=== PATIENT | female | born 1965 | race Caucasian/White ===

== ENCOUNTER 2019-05-25 20:19 | Emergency (ER) | payer OTHER ==
[~2019-05-25] VITALS: Ht 165.1 cm; Wt 103.4 kg
[~2019-05-25 20:19] MED LIST: AMBEREN; AMBIEN 10 MG TA10 MG PO; ATIVAN1 MG PO; AUGMENTIN 875875 MG PO; CELEXA40 MG PO; CHLORPROMAZINE25 M1 PO; CHLORPROMAZINE50 M2 PO; CIPROFLOXACIN500 M1 PO; DESYREL100 MG PO; DIPHENHIST50 MG PO; FLAGYL500 MG PO; GEODON60 MG PO; HALOPERIDOL 2 MG2 MG PO; HYDROCHLOROTH12.5 MG PO; HYDROCHLOROTHIA25 M1 PO; IBUPROFEN 600600 M1 PO; IRON; LACTULOSE PO; LASIX; MACROBID 100 M100 M1 PO; NEURONTIN 300300 M1 PO; NEURONTIN600 MG; NORCO 5-325 TA1 EACH PO; PROPRANOLOL; PROPRANOLOL 4040 M1 PO; SEROQUEL 100 M100 MG PO; SEROQUEL400 MG; TEGRETOL XR100 MG; TEGRETOL XR200 MG PO; TRAMADOL 50 MG50 MG; TRAMADOL 50 MG50 MG PO; TRAZADONE PO; TRAZODONE 150150 M1 PO; TRIAMTERENE-HC1 EAC1 PO; ULTRAM 50MG TAB50 MG PO; ZANTAC 150MG T150 MG PO; ZOFRAN 4 MG ORAL4 M1 DIS; ZOFRAN ODT4 MG PO
[2019-05-25 20:52] LABS: BASOPHILS 0.9 % (0.0-2.0); EOSINOPHILS 2.3 % (0.0-3.0); HEMATOCRIT 40.2 % (37.0-47.0); HEMOGLOBIN 13.9 gm/dL (12.0-15.0); LYMPHOCYTES 20.6 % (24.0-44.0); MCH 31.3 pg (26.0-34.0); MCHC 34.5 g/dL (28.0-37.0); MCV 90.8 fL (80.0-100.0); MONOCYTES 11.9 % (1.0-8.0); PLATELET COUNT 90 thou/uL (150-400); POLYS 64.3 % (36.0-66.0); RBC 4.43 mil/uL (4.20-5.00); RDW 13.9 % (10.5-14.5); WBC 6.3 thou/uL (4.0-11.0)
[2019-05-25 20:59] LABS: CALCIUM 8.7 mg/dL (8.5-10.1); CREATININE 0.8 mg/dL (0.6-1.0); POTASSIUM 3.6 mmol/L (3.5-5.1)
[2019-05-25 21:14] LABS: URINE BILIRUBIN NEGATIVE (Negative); URINE BLOOD NEGATIVE (Negative); URINE CLARITY CLEAR; URINE COLOR YELLOW; URINE GLUCOSE-RANDOM* NEGATIVE (Negative); URINE KETONES NEGATIVE (Negative); URINE LEUKOCYTES-REFLEX NEGATIVE (Negative); URINE NITRITE-REFLEX NEGATIVE (Negative); URINE PROTEIN (DIPSTICK) NEGATIVE (Negative); URINE SPECIFIC GRAVITY <= 1.005 (1.005-1.035); URINE UROBILINOGEN 0.2 E.U./dl (0.2-1.0)
[2019-05-26 06:59] VITALS: BP 114/58
[2019-05-26] MEDS ORDERED: NORFLEX100 MG PO (07:04)
== END 2019-05-26 07:06 | disposition home or self-care (01) ==
LOC: ER 20:19
PROVIDERS: Emergency Medicine
DX: M54.5 Low back pain (principal); F41.9 Anxiety disorder, unspecified; F31.9 Bipolar disorder, unspecified; K74.60 Unspecified cirrhosis of liver; Z98.890 Other specified postprocedural states; Z90.89 Acquired absence of other organs; Z88.5 Allergy status to narcotic agent; Z88.6 Allergy status to analgesic agent

== ENCOUNTER 2019-06-05 07:08 | Emergency (ER) | payer OTHER ==
[~2019-06-05] VITALS: Ht 167.6 cm; Wt 61.2 kg
[~2019-06-05 07:08] MED LIST changes: +NORFLEX100 MG PO
[2019-06-05 08:35] VITALS: BP 158/92
== END 2019-06-05 08:35 | disposition home or self-care (01) ==
LOC: ER 07:08
DX: S01.111A Laceration without foreign body of right eyelid and periocular area, initial encounter (principal); S20.01XA Contusion of right breast, initial encounter; S40.021A Contusion of right upper arm, initial encounter; S70.11XA Contusion of right thigh, initial encounter; K74.60 Unspecified cirrhosis of liver; F31.9 Bipolar disorder, unspecified; F41.9 Anxiety disorder, unspecified; Z90.89 Acquired absence of other organs; Z98.890 Other specified postprocedural states; Z88.5 Allergy status to narcotic agent; V19.88XA Pedal cyclist (driver) (passenger) injured in other specified transport accidents, initial encounter; Y92.89 Other specified places as the place of occurrence of the external cause; Y93.89 Activity, other specified; Y99.8 Other external cause status

== ENCOUNTER 2021-10-13 01:31 | Inpatient (IN) | payer MEDICARE, OTHER ==
[~2021-10-13] VITALS: Ht 167.6 cm; Wt 74.8 kg
--- NOTE | ~2021-10-13 | EMS ---
[facility] [address] [place] [address] EMS Patient Care Report Name: JOSEFINA CASANOVA Room #: PRE M.R.#: [id number] Admission: Attend Phys: Discharge: Date of : 65 Report #: [id number] THIS REPORT FOR: //name// Report Transmitted: 10/13/2021 01:31 EMS Care Summary [place], [place]/[facility] Incident [id number] @ 10/13/2021 01:06 Incident Location [address] [place] [id number] Patient JOSEFINA CASANOVA Female, 55 Years 1965 Patient Address homeless Patient History Pneumonia, Patient Allergies No known allergies, Patient Medications Methylphenidate, Chief Complaint SOA/ cough Disposition Transported No Lights/[place] Dispatch Reason Sick Person Transported To [facility] Narrative Arrived to find pt sitting on curb in front of closed business. Pt states she is homeless and thinks she may have pneumonia because she has been out in the cold and has had it before. Pt states she has had a cough and shortness of breath for 2 days. Cough is non-productive. Pt states she had the Pfeizer Covid vaccine. Pt is able to speak in full sentences. Pt is AOx3 GCS 15. Pt steps in [facility] [address] [place] [address] EMS Patient Care Report Name: JOSEFINA CASANOVA Room #: PRE Stacie#: [id number] Admission: Attend Phys: Discharge: Date of : 65 Report #: [id number] ambulance, sits on cot and is secured with cot straps. Pt placed in 3M mask. Pt transported without incident. Care to RN, rm 12. Initial Vitals @01:18P: 97,R: 16,BP: 136/84,Pain: 0/10,GCS: 15,Temp: 99.1F,Glucose: 134,CO: 9,SpO2: 95,Revised Trauma: 12, @01:20P: 97,BP: 125/81,CO: 12,SpO2: 94, Assessments @01:14MENTAL:Time Oriented,Person Oriented,Place Oriented,Event Oriented,SKIN:HEENT:Head/Face: No Abnormalities,Eyes: No Abnormalities,Neck/Airway: No Abnormalities,LUNG SOUNDS:General: No Abnormalities,Left Upper: No Abnormalities,Right Upper: No Abnormalities,Left Lower: No Abnormalities,Right Lower: No Abnormalities,ABDOMEN:General: No Abnormalities,Left Upper: No Abnormalities,Right Upper: No Abnormalities,Left Lower: No Abnormalities,Right Lower: No Abnormalities,PELVIS//GI:No Abnormalities,EXTREMITIES:Left Arm: No Abnormalities,Right Arm: No Abnormalities,Left Leg: No Abnormalities,Right Leg: No Abnormalities,PULSE:NEURO: Impression Acute Respiratory Distress (Dyspnea) Procedures @01:14 ALS Assessment Response: UnchangedSucceeded Timeline 01:03,Call Received 01:03,Dispatch Notified 01:06,Dispatched 01:07,En Route 01:12,On Scene 01:13,At Patient 01:14,ALS Assessment,Response: UnchangedSucceeded, 01:18,BP: 136/84 M,PULSE: 97,RR: 16 R,SPO2: 95 Ox,ETCO2: ,B,PAIN: 0,GCS: 15, 01:20,BP: 125/81 M,PULSE: 97,RR: R,SPO2: 94 Ox,ETCO2: ,BG: ,PAIN: ,GCS: , 01:21,Depart Scene 01:29,At Destination 01:38,Call Closed Disclaimer v1.1 Copyright 2020 [employer] This EMS Care Summary contains data elements from the applicable legal record (which may be displayed differently). It is designed to provide pertinent [facility] [address] [place] [address] EMS Patient Care Report Name: JOCELYNEJOSEFINAGarrett CARTER Room #: PRE [facility]..#: [id number] Admission: Attend Phys: Discharge: Date of : 65 Report #: [id number] information for the following purposes: continuity of care, clinical quality, and state data reporting. The complete legal record is available to ED staff and administrators of the receiving hospital in [employer] Patient Tracker. All data is provided "as is."
[2021-10-13 01:34] VITALS: BP 143/90
[2021-10-13 02:28] LABS: HEMATOCRIT 40.4 % (37.0-47.0); HEMOGLOBIN 13.7 gm/dL (12.0-15.0); MCH 30.8 pg (26.0-34.0); MCHC 33.9 g/dL (28.0-37.0); MCV 90.9 fL (80.0-100.0); PLATELET COUNT 50 thou/uL (150-400); RBC 4.44 mil/uL (4.20-5.00); RDW 13.7 % (10.5-14.5)
[2021-10-13 02:31] LABS: CALCIUM 8.2 mg/dL (8.5-10.1); CREATININE 0.8 mg/dL (0.6-1.0); POTASSIUM 3.6 mmol/L (3.5-5.1)
[2021-10-13 02:41] LABS: TOTAL BILIRUBIN 0.4 mg/dL (0.2-1.0)
[2021-10-13 04:08] LABS: ABSOLUTE NEUTROPHILS 1.5 thou/uL (1.4-8.2)
[2021-10-13 04:09] LABS: ANISOCYTOSIS 1+; PLATELET ESTIMATE DECREASED; POIKILOCYTOSIS 1+
[2021-10-13 08:03] VITALS: BP 124/65
[2021-10-13 12:34] VITALS: BP 128/80
[2021-10-13 22:05] VITALS: BP 130/77
[2021-10-14] VITALS (8 sets, daily range): BP systolic 114–133; BP diastolic 75–87
[2021-10-14 05:45] LABS: HEMATOCRIT 38.8 % (37.0-47.0); HEMOGLOBIN 13.4 gm/dL (12.0-15.0); MCHC 34.4 g/dL (28.0-37.0); MCV 90.1 fL (80.0-100.0); RBC 4.31 mil/uL (4.20-5.00); RDW 13.2 % (10.5-14.5)
[2021-10-14 06:13] LABS: ALBUMIN 2.6 g/dL (3.4-5.0); CALCIUM 8.3 mg/dL (8.5-10.1); CREATININE 0.7 mg/dL (0.6-1.0); DIRECT BILIRUBIN 0.1 mg/dL (<0.1-0.2); PHOSPHORUS 2.2 mg/dL (2.5-4.9); POTASSIUM 4.1 mmol/L (3.5-5.1); TOTAL BILIRUBIN 0.3 mg/dL (0.2-1.0); TOTAL PROTEIN 6.5 g/dL (6.4-8.2)
[2021-10-14 06:27] LABS: WBC 1.8 thou/uL (4.0-11.0)
--- NOTE | 2021-10-14 07:13 | EKG ---
[address] [place] [address] ELECTROCARDIOGRAM REPORT Name: JOSEFINA CASANOVA Room #: 170-14 ADM IN M.R.#: [id number] Admission: 10/13/21 Attend Phys: Ernesto Seals MD Discharge: Date of : 65 Report #: [id number] [facility] ED Test Date: 2021-10-13 Test Time: 05:42:35 Pat Name: JOSEFINA CASANOVA Department: Room: 170 Gender: F Wireless Communications Engineer: : 1965 Requested By: Wong Sheppard Order Number: [id number] MD: Mushtaq Gallagher Measurements Intervals [place] Rate: 81 P: 48 MO: 143 QRS: 63 QRSD: 105 T: 60 QT: 378 QTc: 439 Interpretive Statements Sinus rhythm Abnormal R-wave progression, early transition Compared to ECG 08/06/2013 09:25:27 No significant changes Electronically Signed On 10-14-2021 7:13:34 FIELD PRODUCER by Mushtaq Gallagher [email or web address] <ELECTRONICALLY SIGNED> By: Mushtaq Gallagher MD, [facility] 10/14/21 0713 0542 0542 Mushtaq Gallagher MD, FAC /EPI
--- NOTE | 2021-10-14 12:25 | HC ---
[facility] [place] [place] [address] CONSULTATION Name: JOSEFINA CASANOVA Room #: 170-14 ADM IN M.R.#: [id number] Admission: 10/13/21 Attend Phys: Ernesto Seals MD Discharge: Date of : 65 Report #: [id number] THIS REPORT FOR: cc: [facility] Rodney Ag MD ~ DATE OF SERVICE: 10/13/2021 INFECTIOUS DISEASE CONSULTATION ATTENDING PHYSICIAN: Dr. Boswell. REASON FOR EVALUATION: COVID-19 infection, complicated by pneumonitis, respiratory failure, also has positive influenza testing. HISTORY OF PRESENT ILLNESS: Chart reviewed. The patient examined. This is a 55-year-old woman with extensive medical history given her age. She does have underlying psychiatric illness as well ethanol abuse with cirrhosis, who presented with a several-day history of present illness and his progressive dyspnea, nonproductive cough, and fevers. She notes flu-like illness. ER evaluation confirmed positive coronavirus testing. Also had positive influenza, both A and B testing. Was leukopenic, thrombocytopenic as well and low-grade temperature elevation. She has required supplemental oxygen, now at 3 liters per nasal cannula. She was empirically started on a combination therapy with dexamethasone, remdesivir, azithromycin, ceftriaxone, also given Tamiflu. She is in moderate distress at this point, although appears to be only mild encephalopathic. Remdesivir, azithromycin, ceftriaxone. PAST MEDICAL HISTORY: As described above, depression, anxiety, bipolar disease, has cirrhosis. SOCIAL HISTORY: Ethanol, excess. Nonsmoker. Has used drugs in the past. PHYSICAL EXAMINATION: GENERAL: Appears chronically ill and undernourished. She is in moderate distress. VITAL SIGNS: Temperature 99.6, pulse 78, respirations 27, blood pressure is 128/80. SKIN: Warm, dry, no rashes. HEENT: Nasal cannula in place. Normocephalic. Extraocular muscles intact. NECK: Supple. LUNGS: Few scattered bilateral coarse breath sounds. ABDOMEN: Distended, somewhat firm, nontender. EXTREMITIES: No cyanosis. Distal lower extremities have dermatitis that she states is chronic and essentially asymptomatic. She does have somewhat unusual appearance. [facility] [address] [place] [address] CONSULTATION Name: JOSEFINA CASANOVA Room #: 170-14 ADM IN [facility].#: [id number] Admission: 10/13/21 Attend Phys: Ernesto Seals MD Discharge: Date of : 65 Report #: [id number] GENITOURINARY AND RECTAL: Deferred. LABORATORY DATA: D-dimer 0.7. CRP 28.4. Procalcitonin less than 0.05. Chest x-ray; patchy areas of interstitial infiltrates. CBC: White count of 2.0, H and H 13.7 and 40.4, platelets of 50. She does have a bandemia of 23%. Influenza A and B antigens both positive. ProBNP of 20. Electrolytes: Sodium 139, potassium 3.6, chloride 103, bicarbonate is 20, anion gap of 8, BUN and creatinine 13 and 0.8, glucose of 115, AST of 65, ALT of 38, albumin of 3.0, total protein 7.0, estimated GFR of 74. ASSESSMENT AND PLAN: COVID-19 infection, complicated by pneumonitis, and respiratory failure with early acute respiratory distress syndrome. We will continue current therapy as prescribed. She remains fairly tenuous at this point. We will consider adding monoclonal antibody to see how she does over the next 24 hours. Repeat test of the influenza antigen. I suspect this is a false positive. Continue to monitor expectantly. Oxygen therapy as required. <ELECTRONICALLY SIGNED> By: Rodney Ag MD 10/14/21 1225 1403 0021 Rodney Ag MD /nt
--- NOTE | 2021-10-14 15:08 | NUR ---
Case discussed with the care team. Pt improving and weaning off o2. PT eval and pt cleared for dc home. Lives in a cabin with her fiance Ben. Pt is disabled and on SS disability. She has health ins in place for f/u care and scripts at [facility]. Pt is covid/flu+. Pt is vaccinated for covid. Hx of ethol and substance abuse as well as mental health issues. Pt has utlized [facility] in the recent past. No cm interventions indicated. ER to provide instructions on quarentining and f/u are for covid/flu. Scripts can be filled at the [facility] if pt desires.
--- NOTE | 2021-10-14 22:57 | NUR ---
ADMIT FROM ED. PT WAS IN ED FOR TWO DAYS. PT IN ISOLATION FOR FLU A/B AND COVID. LUNGS DIMINISHED. PRN NC FOR SLEEP. PT REPORTED COVID VACCINE EARLY LAST YEAR, BUT NO FLU VACCINATION THIS YEAR. PT IS DISHEVLED. DUSKY SKIN TONE. SLEEPY BUT AWAKENS FOR QUESTIONS AND MEDICATIONS. PT REQUESTED DINNER TRAY BUT FELL ASLEEP EACH TIME REMINDED TO EAT. STEADY GAIT, PT CALLS FOR ASSISTANCE.
[2021-10-15 02:57] LABS: BASOPHILS 0.4 % (0.0-2.0); EOSINOPHILS 0.1 % (0.0-3.0); HEMATOCRIT 40.7 % (37.0-47.0); HEMOGLOBIN 13.8 gm/dL (12.0-15.0); LYMPHOCYTES 38.1 % (24.0-44.0); MCH 30.8 pg (26.0-34.0); MCHC 33.9 g/dL (28.0-37.0); MCV 90.9 fL (80.0-100.0); MONOCYTES 14.7 % (1.0-8.0); PLATELET COUNT 60 thou/uL (150-400); POLYS 46.7 % (36.0-66.0); RBC 4.48 mil/uL (4.20-5.00); RDW 13.5 % (10.5-14.5); WBC 2.2 thou/uL (4.0-11.0)
[2021-10-15 03:11] LABS: ALBUMIN 2.5 g/dL (3.4-5.0); CALCIUM 8.5 mg/dL (8.5-10.1); CREATININE 0.6 mg/dL (0.6-1.0); DIRECT BILIRUBIN 0.2 mg/dL (<0.1-0.2); PHOSPHORUS 2.6 mg/dL (2.5-4.9); POTASSIUM 4.2 mmol/L (3.5-5.1); TOTAL BILIRUBIN 0.4 mg/dL (0.2-1.0); TOTAL PROTEIN 6.4 g/dL (6.4-8.2)
[2021-10-15 03:27] VITALS: BP 122/80
[2021-10-15 06:59] VITALS: BP 133/87
[2021-10-15 11:15] VITALS: BP 127/85
[2021-10-15 12:54] VITALS: BP 127/85
--- NOTE | 2021-10-15 14:32 | NUR ---
SWATI reviewed chart and spoke with nursing and attending physician. Pt remains in Enhanced Isolation due to COVID. Pt is also Flu A&B positive. Pt is afebrile and on room air. Pt is on IV steroids and Remdesivir. Rest/exercise oximetry completed earlier today. Pt does not need home O2. Pt stated to nursing that she is homeless and does not have anywhere to go. SWATI spoke with pt via phone ([phone]). Introduced role of SWATI. Pt is alert/orientated x 4. Pt states she has a cabin, where she stays with friends. She is unable to get a hold of anyone there and is unsure if there is electricity and heat at the cabin. Pt states she cannot go there after dark. Pt became very upset and tearful. Pt states she cannot go to a homeless retirement. SW discussed alternate options of staying with family/friends. Pt states she cannot get a hold of anyone and she does not want to get anyone sick. Pt then hung up on SW. SWATI discussed with nursing, who will go talk to pt soon. SWTAI updated attending physician. Pt with hx of bipolar, anxiety, depression and may benefit from a psych consult. Pt does have [employer]. If pt wanted to consider short-term placement, would need to have a medical/therapy need. SWATI discussed with Director of Case Mgmt. SWATI is following to assist as needed with discharge planning.
[2021-10-15] MEDS ORDERED: ACETAMINOPHEN325 M1 PO (14:33)
[2021-10-15] MEDS ORDERED: KEFLEX250 MG PO (14:36)
[2021-10-15] MEDS ORDERED: DEXAMETHASONE6 MG PO (14:37)
--- NOTE | 2021-10-15 17:20 | NUR ---
Per attending MD at 1648 who states that the patient informed the attending she will be willing to discharge on 10/16/21.
[2021-10-15 18:09] VITALS: BP 114/79
--- NOTE | 2021-10-15 18:23 | NUR ---
PT ALERT AND ORIENTED X 4. PT HAS DISCHARGE ORDERS FOR TODAY, BUT REFUSED TO GO HOME PT STATES "ITS ALREADY TOO DARK OUT". PT EXTREMELY AGITATED WHEN DISCUSSING DISCHARGE. PT TO DISCHARGE TOMORROW. PT COMPLETED EXERCISE OXIMETRY TODAY WITH NO OXYGEN NEEDED, BUT PT PANICKED WHEN NASAL CANNULA WAS TAKEN OFF. PT ON RA WITH NASAL CANNULA ON. PT COMPLAINS OF TOOTHACHE, PT VERY UNHAPPY WITH TYLENOL, STATING "PERCOCET WORKS BETTER". PT ACCEPTED TYLENOL, WITH LITTLE STATED PAIN RELIEF.
[2021-10-15 19:10] VITALS: BP 119/87
--- NOTE | 2021-10-15 21:48 | NUR ---
PT SLEEPING, EASILY AROUSED FOR MEDS ASSESSMENT. SNACKS PROVIDED. PT REQUESTING PRN O2 AND PROVIDED. CRACKLES IN BASES. PT PROVIDED ORAJEL FOR TOOTH PAIN. PT DISCUSSED THAT SHE HAS ADDRESS TO HAVE HER [employer] PACKAGES DELIVERED. REMAINS DISHEVLED. PT CALLS FOR ASSIST.
[2021-10-16 04:15] VITALS: BP 121/77
[2021-10-16 06:12] LABS: ALBUMIN 2.7 g/dL (3.4-5.0); CALCIUM 8.9 mg/dL (8.5-10.1); CREATININE 0.6 mg/dL (0.6-1.0); DIRECT BILIRUBIN 0.2 mg/dL (<0.1-0.2); POTASSIUM 4.1 mmol/L (3.5-5.1); TOTAL BILIRUBIN 0.4 mg/dL (0.2-1.0); TOTAL PROTEIN 6.9 g/dL (6.4-8.2)
[2021-10-16 07:38] VITALS: BP 133/86
[2021-10-16 09:24] VITALS: BP 133/86
[2021-10-16 11:24] VITALS: BP 135/87
--- NOTE | 2021-10-16 12:45 | NUR ---
PT STATED TO RN THIS AM SHE WOULD LIKE TO STAY IN HOSPITAL DESPITE DISCHARGE ORDERS FOR YESTERDAY. ATTENDING PHYSICIAN WOULD LIKE FOR PT TO STAY OVER WEEKEND TO COMPLETE TAMIFLU MEDICATION AND CXR TO OBSERVE ANY CHANGES. AFTER SPEAKS WITH PT, PT STATES SHE WOULD LIKE TO LEAVE TO GO HOME. RN INFORMED PT SHE COULD LEAVE AMA, BUT SHE WOULD NO LONGER QUALIFY FOR A CAB RIDE HOME. PT VERY ANGRY, SHOUTING AT RN THAT A CAB RIDE WAS PROMISED. THIS RN EXPLAINED LEAVING AMA AND WHAT THAT MEANS AND PT RIGHTS. PT STATED SHE WILL ATTEMPT TO FIND RIDE HOME. THIS RN DC'D IV AND TOOK OFF TELEMETRY IN CASE PT WALKS OUT. NOW WAITING FOR POSSIBLE RIDE HOME. WILL CONTINUE TO MONITOR.
--- NOTE | 2021-10-16 13:07 | NUR ---
PT LEFT AMA APPROXIMATELY 1400. PT STATED TO BRAND AMBASSADOR SHE WILL BE LEAVING VIA THE BUS. BRAND AMBASSADOR WHEELED HER TO FRONT ENTRANCE. PT SIGNED AMA PAPERWORK. ALL BELONGINGS WITH PT. RN DC'D IV AND TELEMETRY.
[2021-10-16 18:06] LABS: INFLUENZA VIRUS B AB QUANT Negative (Neg:<1:8)
[2021-10-16] MEDS ORDERED: TAMIFLU75 MG PO (21:12)
== END 2021-10-16 13:16 | disposition left against medical advice (07) | DRG 177 ==
LOC: ER 01:31 → 3W 04:03 → EROBS 04:03 → 3W 10-14 18:33
PROVIDERS: Emergency Medicine; Nurse Practitioner Family; Specialist; ADMIT Internal Medicine; ATTEND Internal Medicine
PROC: XW033E5 Introduction of Remdesivir Anti-infective into Peripheral Vein, Percutaneous Approach, New Technology Group 5 (ICD-10-PCS; principal; 2021-10-13)
DX: U07.1 COVID-19 (principal); J12.82 Pneumonia due to coronavirus disease 2019; J80 Acute respiratory distress syndrome; F41.9 Anxiety disorder, unspecified; Z53.29 Procedure and treatment not carried out because of patient's decision for other reasons; F32.9 Major depressive disorder, single episode, unspecified; K74.60 Unspecified cirrhosis of liver; J10.1 Influenza due to other identified influenza virus with other respiratory manifestations; D69.6 Thrombocytopenia, unspecified; D72.819 Decreased white blood cell count, unspecified; Z88.6 Allergy status to analgesic agent; Z82.49 Family history of ischemic heart disease and other diseases of the circulatory system; Z83.3 Family history of diabetes mellitus
CPT/HCPCS: 10779